=== PATIENT | female | born 1955 | race Caucasian/White ===

== ENCOUNTER → 2020-10-21 01:08 | Outpatient (CLI) | payer MEDICARE, SELFPAY ==
[2020-10-21 22:46] LABS: SARS-CoV-2 RNA PCR Negative
== END ==
PROVIDERS: PCP Internal Medicine; Visit Provider Internal Medicine
DX: B34.9 Viral infection, unspecified (principal); Z20.822 Contact with and (suspected) exposure to COVID-19
CPT/HCPCS: C9803; U0003; U0005

== ENCOUNTER 2022-03-20 14:30 | Outpatient (RCR) | payer MEDICARE, SELFPAY ==
[2022-01-10 10:01] VITALS: BMI 31.4
[2022-01-10 14:13] VITALS: BMI 31.4
== END 2022-04-10 23:59 | disposition home or self-care (01) ==
LOC: ANHDMC 14:30
PROVIDERS: PCP Internal Medicine; Visit Provider Internal Medicine
DX: E11.9 Type 2 diabetes mellitus without complications (principal); Z71.3 Dietary counseling and surveillance; Z71.89 Other specified counseling
CPT/HCPCS: 97802; 99199; G0108; G0109

== ENCOUNTER 2022-06-13 14:34 | Outpatient (RCR) | payer MEDICARE, SELFPAY | END 2022-06-13 16:36 | disposition home or self-care (01) | LOC: ANHDMC 14:34 | PROVIDERS: PCP Internal Medicine; Visit Provider Internal Medicine | DX: E11.9 Type 2 diabetes mellitus without complications (principal); Z71.89 Other specified counseling | CPT/HCPCS: G0109 ==

== ENCOUNTER 2022-12-17 00:16 | Day surgery (SDC) | payer MEDICARE, SELFPAY ==
[2022-12-04 15:06] VITALS: BMI 26.4
[2022-12-17 10:28] VITALS: BP 117/69; PULSE 96; RESP 18; TEMP 36.5; O2SAT 92
[2022-12-17] MEDS: LACTATED RINGERS 1,000 ML 150 ML IV CONT (10:42)
[2022-12-17 10:49] LABS: Glucose Point of Care 98 mg/dl (65-105)
--- NOTE | 2022-12-17 11:07 | PM.HPGS ---
History of Present Illness History of Present Illness Consent: Risks, benefits, and alternatives have been discussed and questions answered. Patient agrees to proceed with procedure. Chief complaint: hx of colon polyps Narrative: Agnes Jerry is a 67 year old female with colon polyp 4 years ago Review of Systems Constitutional: Constitutional: Denies headache(s) and Denies weakness Eyes: Eyes: Denies blurry vision ENT: Reports Normal hearing present, Denies headache(s) and Denies neck pain Cardiovascular: Cardiovascular: Denies chest pain and Denies dyspnea Respiratory: Respiratory: Denies dyspnea Gastrointestinal: Gastrointestinal: Reports no additional gastrointestinal complaints Genitourinary: Genitourinary: Denies dysuria Musculoskeletal: Musculoskeletal: Denies neck pain Integumentary/Breasts: Skin/Breast: Denies dry skin Neurologic: Reports Normal hearing present, Denies headache(s) and Denies weakness Psychiatric: Psychiatric: Denies anxiety Endocrine: Endocrine: Denies change in body appearance Hematologic/Lymphatic: Hematologic/Lymphatic: Denies easy bleeding Allergic/Immunologic: Allergic/Immunologic: Denies urticaria PMFSH Past Medical History Medical History (Updated 12/17/22 @ 11:07 by Aaron Owens MD) Colon polyp Family History Family History Mother Hypertension Father Patient's father is Sibling Patient's sister is in good health Social History Social History Smoking status: Never smoker Second hand tobacco smoke exposure: No Alcohol intake: never Substance use: never Substance use type: does not use Lack of Transportation: No Lack of Food: Never True Current Housing: I Have Housing Concerned About Future Housing: No Difficulty Paying Gas/Electric Bills: No Difficulty Paying for Meds: No Currently Unemployed: No Difficulty w/ Childcare or Family Care: No Living arrangements: with family Spiritual care concerns: No Meds Home Medications and Allergies Home Medications Medication Instructions Recorded Confirmed Type bupropion HCl 300 mg 24 hr tablet, 300 mg PO QAM 03/19/19 12/17/22 History extended release modafinil 200 mg tablet 600 mg PO QAM 03/19/19 12/17/22 History trazodone 50 mg tablet 150 mg PO .QHS 03/19/19 12/17/22 History cholecalciferol (vitamin D3) 25 25 mcg PO DAILY 09/13/19 12/17/22 History mcg (1,000 unit) capsule fluoxetine 20 mg capsule 20 mg PO DAILY 10/25/20 12/17/22 History albuterol sulfate 90 mcg/actuation 1 - 2 inh inhalation Q4-6H PRN 11/02/20 12/17/22 Rx aerosol inhaler shortness of breath or wheezing #8.5 grams ginkgo biloba 40 mg tablet 120 mg PO BID 01/17/21 12/17/22 History levothyroxine 100 mcg tablet 112 mcg PO DAILY 01/17/21 12/17/22 History risperidone 2 mg tablet 6 mg PO DAILY 01/17/21 12/17/22 History lancets 33 gauge (OneTouch Delica 01/23/22 12/17/22 History Plus Lancet) [facility] 01/25/22 12/17/22 Rx Plus Lancet) levomefolate calcium 15 mg tablet 15 mg PO DAILY 04/30/22 12/17/22 History (L-Methylfolate) blood sugar diagnostic (OneTouch #100 ea 10/16/22 12/17/22 Rx Verio test strips) cabergoline 0.5 mg tablet 1 mg PO 2XW 11/04/22 12/17/22 History omega-3 fatty acids 1,000 mg 1,000 mg PO BID 11/04/22 12/17/22 History capsule omeprazole 40 mg capsule,delayed 40 mg PO DAILY 11/04/22 12/17/22 History release atorvastatin 40 mg tablet 40 mg PO DAILY #90 tabs 12/04/22 12/17/22 Rx Arnuity Ellipta 100 mcg/actuation 1 inh inhalation DAILY 1 month #30 12/09/22 12/17/22 Rx powder for inhalation (fluticasone ea furoate) semaglutide 0.25 mg or 0.5 mg (2 0.25 mg (0.368 mL) subcut WEEKLY 12/10/22 12/17/22 Rx mg/3 mL) subcutaneous pen injector #3 mL ([facility]) Allergies Allergy/AdvReac
--- NOTE | 2022-12-17 11:21 | WPDANESEPPF ---
Anes - Initial Pre Proc Eval Procedure: Operation Date: 12/17/22 11:30 Proposed Procedures p Colonoscopy - Aaron Owens MD Date/Time: 12/17/22 11:21 Surgeon: Aaron Owens MD Pre Op Diagnosis: hx of colon polyps Patient Data Age: 67 Gender: F Height: 1.63 m Weight: 70.3 kg Last Vital Signs Temp 97.7 F 12/17/22 10:28 Pulse 96 12/17/22 10:28 Resp 18 12/17/22 10:28 BP 117/69 12/17/22 10:28 Pulse Ox 92 12/17/22 10:28 O2 Del Method Room Air 12/17/22 10:28 Allergies Allergy/AdvReac Type Severity Reaction Status Date / Time erythromycin base Allergy Mild Hives Verified 12/17/22 10:44 Penicillins Allergy Mild Hives Verified 12/17/22 10:44 Sulfa (Sulfonamide Allergy Mild Unknown Verified 12/17/22 10:44 Antibiotics) tetracycline Allergy Mild hives Verified 12/17/22 10:44 Home Medications Medication Instructions Recorded Confirmed Type bupropion HCl 300 mg 24 hr tablet, 300 mg PO QAM 03/19/19 12/17/22 History extended release modafinil 200 mg tablet 600 mg PO QAM 03/19/19 12/17/22 History trazodone 50 mg tablet 150 mg PO .QHS 03/19/19 12/17/22 History cholecalciferol (vitamin D3) 25 25 mcg PO DAILY 09/13/19 12/17/22 History mcg (1,000 unit) capsule fluoxetine 20 mg capsule 20 mg PO DAILY 10/25/20 12/17/22 History albuterol sulfate 90 mcg/actuation 1 - 2 inh inhalation Q4-6H PRN 11/02/20 12/17/22 Rx aerosol inhaler shortness of breath or wheezing #8.5 grams ginkgo biloba 40 mg tablet 120 mg PO BID 01/17/21 12/17/22 History levothyroxine 100 mcg tablet 112 mcg PO DAILY 01/17/21 12/17/22 History risperidone 2 mg tablet 6 mg PO DAILY 01/17/21 12/17/22 History lancets 33 gauge (OneTouch Delica 01/23/22 12/17/22 History Plus Lancet) lancets 33 gauge (OneTouch Delica #100 ea 01/25/22 12/17/22 Rx Plus Lancet) levomefolate calcium 15 mg tablet 15 mg PO DAILY 04/30/22 12/17/22 History (L-Methylfolate) blood sugar diagnostic (OneTouch #100 ea 10/16/22 12/17/22 Rx Verio test strips) cabergoline 0.5 mg tablet 1 mg PO 2XW 11/04/22 12/17/22 History omega-3 fatty acids 1,000 mg 1,000 mg PO BID 11/04/22 12/17/22 History capsule omeprazole 40 mg capsule,delayed 40 mg PO DAILY 11/04/22 12/17/22 History release atorvastatin 40 mg tablet 40 mg PO DAILY #90 tabs 12/04/22 12/17/22 Rx Arnuity Ellipta 100 mcg/actuation 1 inh inhalation DAILY 1 month #30 12/09/22 12/17/22 Rx powder for inhalation (fluticasone ea furoate) semaglutide 0.25 mg or 0.5 mg (2 0.25 mg (0.368 mL) subcut WEEKLY 12/10/22 12/17/22 Rx mg/3 mL) subcutaneous pen injector #3 mL ([facility]) Laboratory Tests 12/17/22 10:47 POC Capillary Glucose 98 mg/dl (65-105) Patient hx anesthesia problems: none Family hx anesthesia problems: none Results Review: All pre-operative results and documents have been reviewed as part of the pre-operative evaluation. [facility] Past Medical History Medical History (Updated 12/17/22 @ 11:07 by Aaron Owens MD) Colon polyp Family History Family History Mother Hypertension Father Patient's father is Sibling Patient's sister is in good health Social History Social History Smoking status: Never smoker Second hand tobacco smoke exposure: No Alcohol intake: never Substance use: never Substance use type: does not use Lack of Transportation: No Lack of Food: Never True Current Housing: I Have Housing Concerned About Future Housing: No Difficulty Paying Gas/Electric Bills: No Difficulty Paying for Meds: No Currently Unemployed: No Difficulty w/ Childcare or Family Care: No Living arrangements: with family Spiritual care concerns: No Anes - Eval Final PreProcedure Day of Procedure 12/17/22 11:21 Patient weight: normal Heart: re
[2022-12-17 11:41] VITALS: BP 104/59; PULSE 70; RESP 24; O2SAT 97
[2022-12-17 11:51] VITALS: BP 106/66; PULSE 69; RESP 20; O2SAT 100
[2022-12-17 12:01] VITALS: BP 119/70; PULSE 66; RESP 23; O2SAT 99
--- NOTE | 2022-12-17 12:45 | SUR.OPER ---
1140 2nd ascending colon polyp did not come through the trap. Ascending and descending colon polyps in same container. Dr. Gomez notified.
== END 2022-12-17 12:13 | disposition home or self-care (01) ==
PROVIDERS: PCP Internal Medicine; Visit Provider Internal Medicine Gastroenterology
PROC: 0DJD8ZZ Inspection of Lower Intestinal Tract, Via Natural or Artificial Opening Endoscopic (ICD-10-PCS; CPT 45378; principal; 2022-12-17 11:30)
DX: Z12.11 Encounter for screening for malignant neoplasm of colon (principal); D12.0 Benign neoplasm of cecum; D12.2 Benign neoplasm of ascending colon; D12.4 Benign neoplasm of descending colon; Z79.85 Long-term (current) use of injectable non-insulin antidiabetic drugs; Z79.51 Long term (current) use of inhaled steroids
CPT/HCPCS: 45385; 82948; 88305; J7120

== ENCOUNTER → 2023-01-30 13:02 | Outpatient (CLI) | payer MEDICARE, SELFPAY ==
--- NOTE | ~2023-01-30 | MM_ITS ---
EXAMINATION: MM screening betsey BI w basilio HISTORY: Screening mammogram TECHNIQUE: Craniocaudal and mediolateral oblique 3-D tomosynthesis images were obtained and synthetic 2-D images were generated. CAD analysis was submitted and interpreted. COMPARISON: 12/06/2011 BREAST PARENCHYMAL COMPOSITION: The breasts are heterogeneously dense, which may obscure small masses . FINDINGS: No suspicious mass, calcification, or architectural distortion are identified in either meg ast to suggest malignancy. There has been no suspicious interval change. IMPRESSION: 1. No mammographic evidence of malignancy. 2. Recommend routine screening mammography in one year. BI-RADS Category 1: Negative Reviewed, dictated and finalized at location A. [facility] D[facility]
== END ==
PROVIDERS: PCP Internal Medicine; Visit Provider Internal Medicine
DX: Z12.31 Encounter for screening mammogram for malignant neoplasm of breast (principal)
CPT/HCPCS: 77063; 77067

== ENCOUNTER → 2023-03-21 10:13 | Outpatient (CLI) | payer MEDICARE, SELFPAY ==
--- NOTE | ~2023-03-21 | DEXA_ITS ---
Bone Density Report Name: VIK ROWE Age: 68 Sex: Female Ethnicity: White Date of : 1955 Indication: osteopenia; height loss; postmenopausal; asthma or emphysema; Referring Provider: Easton Crow Study: Bone densitometry was performed. Exam Date: March 21, 2023 Accession number: [id number] Bone Density: Region BMD T-score Z-score Classification AP Spine (L1-L4) 0.810 -2.2 -0.3 Osteopenia Femoral Neck (Left) 0.552 -2.7 -1.1 Osteoporosis Total Hip (Left) 0.604 -2.8 -1.5 Osteoporosis Femoral Neck (Right) 0.560 -2.6 -1.0 Osteoporosis Total Hip (Right) 0.562 -3.1 -1.8 Osteoporosis Total Hip Mean 0.583 -3.0 -1.7 Osteoporosis World Health Organization criteria for BMD impression classify patients as: Normal (T-score at or above -1.0), Osteopenia (T-score between -1.0 and -2.5), or Osteoporosis (T-score at or below -2.5). 10-year Fracture Risk: FRAX not reported because: Some T-score for Spine Total or Hip Total or Femoral Neck at or below -2.5 Previous Exams: Region Exam Age BMD T-score BMD Change BMD Change Date g/cm2 vs Baseline vs Previous AP Spine(L1-L4) 03/21/2023 68 0.810 -2.2 -0.098* -0.098* 12/06/2011 56 0.908 -1.3 Total Hip(Left) 03/21/2023 68 0.604 -2.8 -0.136* -0.136* 12/06/2011 56 0.739 -1.7 Total Hip(Right) 03/21/2023 68 0.562 -3.1 -0.168* -0.168* 12/06/2011 56 0.730 -1.7 *Denotes significance at 95% confidence level, LSC for AP Spine = 0.022 g/cm2, LSC for Total Hip = 0.027 g/cm2 Clinical Information Provided by Patient: Has used the following medications: Vitamin D, LEVOTHYROXINE Has the following medical conditions: Asthma or Emphysema Patient maximum height was 65.0 Menopause Age: 50 No regular weight bearing exercise Onset of menses at age 14 Number of children 1 Impression: The patient has osteoporosis, based on the Right Total Hip T-score. The BMD for the AP Spine(L1-L4) decreased, changing by -0.098 since the last DXA exam. The BMD for the Total Hip(Left) decreased, changing by -0.136 since the last DXA exam. The BMD for the Total Hip(Right) decreased, changing by -0.168 since the last DXA exam. Discussion: INCREASED RISK OF FRACTURE. BONE DENSITY IS UNDESIRABLY LOW AT ONE OR MORE SKELETAL SITES, CONSISTENT WITH POSTMENOPAUSAL OSTEOPOROSIS. This patient's lowest T-score meets the World Health Organization's (WHO) criteria for osteoporosis at one or more sites (
== END ==
PROVIDERS: PCP Physician Assistant; Visit Provider Physician Assistant
DX: M81.0 Age-related osteoporosis without current pathological fracture (principal); Z78.0 Asymptomatic menopausal state
CPT/HCPCS: 77080

== ENCOUNTER 2023-03-26 07:32 | Outpatient (CLI) | payer MEDICARE, SELFPAY ==
--- NOTE | ~2023-03-26 | US_ITS ---
Abdominal Sonogram: Real-time sonographic imaging of the abdomen was performed. Clinical History: Epigastric pain Findings: The liver appears normal with no evidence of mass lesion or bile duct dilatation. Main por mariana vein demonstrates normal direction of flow. The spleen is normal in size without evidence of foca l lesion. The gallbladder is absent, compatible prior cholecystectomy. The common bile duct measures 9 mm. The visualized pancreas, aorta, and IVC are unremarkable. The right kidney measures 9.0 cm i n length and the left kidney measures 10.2 cm. There is no hydronephrosis or renal calculus. Impression: Mildly prominent common bile duct is probably related to prior cholecystectomy. Reviewed, dictated and finalized at location M. [employer] Impression: Mildly prominent common bile duct is probably related to prior cholecystectomy.
== END 2023-03-26 07:33 | disposition home or self-care (01) ==
LOC: ANHIMG 07:33
PROVIDERS: PCP Physician Assistant; Visit Provider Nurse Practitioner Family
DX: R10.13 Epigastric pain (principal); Z90.49 Acquired absence of other specified parts of digestive tract
CPT/HCPCS: 76700

== ENCOUNTER 2023-04-15 08:59 | Emergency (ER) | payer MEDICARE, SELFPAY ==
[2023-04-15] VITALS (14 sets, daily range): BP systolic 126–152; BP diastolic 71–87; PULSE 76–88; RESP 16–18; TEMP 36.4–36.5; O2SAT 93–100
--- NOTE | ~2023-04-15 | CT_ITS ---
EXAMINATION: CT abdomen pelvis w con DATE: 04/15/2023 15:31 INDICATION: Epigastric abdominal pain. TECHNIQUE: Computed tomography (CT) of the abdomen and pelvis was performed with 100 mL Omnipaque 350 intravenous contrast. Automated exposure control and iterative reconstruction technique were employe d. The dose-length product was 332.39 mGy-cm. COMPARISON: Abdomen ultrasound 03/26/2023 FINDINGS: The visualized portions of the lung bases demonstrate mild atelectasis. No pleural effusion . The heart size is normal. No pericardial effusion. The liver is normal. There are changes of colost jacky. The spleen is normal. There is ill-defined hypodense mass involving the body of the pancreas ric suring approximately 3.1 x 2.6 cm. The pancreatic duct is dilated to 5 mm in the tail of the pancreas . The common duct is dilated to 12 mm, likely not clinically significant given the normal liver funct ion tests. The adrenal glands and right kidney are normal. There is a 5 mm cyst in left kidney. The p eriuterine veins and ovarian veins are prominent, consistent with pelvic venous insufficiency. There are no dilated loops of bowel. The appendix is normal. Aortic atherosclerosis is noted. There are no pathologically enlarged lymph nodes. There is no free intraperitoneal fluid. There is mild lumbar spo ndylosis. There are chronic compression fractures of L1 and L3. IMPRESSION: 1. Pancreatic mass suspicious for primary adenocarcinoma. Reviewed, dictated and finalized at location E. [employer] TECHNICIAN
[2023-04-15 13:08] LABS: Glucose Point of Care 139 mg/dl (65-105)
--- NOTE | 2023-04-15 14:30 | ECG_ITS ---
Measurements Intervals Artemas Rate: 76 P: 13 AK: 150 QRS: 9 QRSD: 82 T: 53 QT: 366 QTc: 412 Interpretive Statements SINUS RHYTHM NO PREVIOUS ECG AVAILABLE FOR COMPARISON Electronically Signed On 04-15-2023 15:52:22 SEISMOGRAPH COMPUTER by Demetrio Patel M.D.
--- NOTE | 2023-04-15 14:38 | ED.ABDPAIN ---
HPI - Abdominal Pain General Chief Complaint: Abdominal Pain <Terese Collado PA-C - Last Filed: 04/15/23 19:29> Stated Complaint: abd pain <Terese Collado PA-C - Last Filed: 04/15/23 19:29> Time Seen by Provider: 04/15/23 14:05 <Terese Collado PA-C - Last Filed: 04/15/23 19:29> Focused HPI: This is a 68-year-old female that presents to the emergency department for epigastric abdominal pain. Ongoing over the last couple of months. Reports worsening with some nausea and vomiting. She does see GI for this. Denies fevers or diarrhea. GENERAL: Well-appearing, well-nourished, and in no acute distress. HEAD: Normocephalic, atraumatic. CHEST: Clear to auscultation. No respiratory distress. HEART: Regular rate and rhythm. GASTROINTESTINAL: Soft, nondistended. Tender in the epigastrium, without guarding NEURO: Alert and oriented x3. Patient screened in triage and initial orders placed. Additional care and disposition to be based upon diagnostic testing and treatment. <Terese Collado PA-C - Last Filed: 04/15/23 19:29> History of Present Illness HPI narrative: 68-year-old with a history of hypertension, depression presents to the ER with the complaints of upper abdominal pain which has been ongoing for past several weeks. Patient is scheduled for EGD by Dr. Gomez some time however this afternoon her pain was quite intense. She also complains of nausea and vomiting and was unable to keep any of her medicines down. She denies any fever chills. No history of chest pain or shortness of breath <Nicholas Stein MD - Last Filed: 04/15/23 18:32> Pain Consistency: constant <Nicholas Stein MD - Last Filed: 04/15/23 18:32> Location: epigastric <Nihcolas Stein MD - Last Filed: 04/15/23 18:32> Quality: aching <Nicholas Stein MD - Last Filed: 04/15/23 18:32> Radiation: none <Nicholas Stein MD - Last Filed: 04/15/23 18:32> Migration to: no migration <Nicholas Stein MD - Last Filed: 04/15/23 18:32> Exacerbating factors: nothing <Nicholas Stein MD - Last Filed: 04/15/23 18:32> Relieving factors: nothing <Nicholas Stein MD - Last Filed: 04/15/23 18:32> Related Data Home Medications: Home Medications Medication Instructions Recorded Confirmed bupropion HCl 300 mg 24 hr tablet, 300 mg PO QAM 03/19/19 04/14/23 extended release modafinil 200 mg tablet 600 mg PO QAM 03/19/19 04/14/23 trazodone 50 mg tablet 150 mg PO .QHS 03/19/19 04/14/23 cholecalciferol (vitamin D3) 25 25 mcg PO DAILY 09/13/19 04/14/23 mcg (1,000 unit) capsule fluoxetine 20 mg capsule 20 mg PO DAILY 10/25/20 04/14/23 ginkgo biloba 40 mg tablet 120 mg PO BID 01/17/21 04/14/23 risperidone 2 mg tablet 6 mg PO DAILY 01/17/21 04/14/23 lancets 33 gauge (OneTouch Delica 01/23/22 04/02/23 Plus Lancet) levomefolate calcium 15 mg tablet 15 mg PO DAILY 04/30/22 04/14/23 (L-Methylfolate) cabergoline 0.5 mg tablet 1 mg PO 2XW 11/04/22 04/14/23 omega-3 fatty acids 1,000 mg 1,000 mg PO BID 11/04/22 04/14/23 capsule linaclotide 72 mcg capsule 72 mcg PO DAILY PRN Constipation 04/14/23 04/14/23 (Linzess) <Terese Collado PA-C - Last Filed: 04/15/23 19:29> Allergies/Adverse Reactions: Allergies Allergy/AdvReac Type Severity Reaction Status Date / Time erythromycin base Allergy Mild Hives Verified 04/15/23 14:48 Penicillins Allergy Mild Hives Verified 04/15/23 14:48 Sulfa (Sulfonamide Allergy Mild Unknown Verified 04/15/23 14:48 Antibiotics) tetracycline Allergy Mild hives Verified 04/15/23 14:48 <Terese Collado PA-C - Last Filed: 04/15/23 19:29> Review of Systems Review of Systems: All systems reviewed & are unremarkable except as noted in HPI and below <Nicholas Stein MD - Last Filed: 04/15/23 18:32> Constitutional: Constitutional: Reports no additional constitutional complaints <Nicholas Stein MD - Last Filed: 04/15/23 18:32> Eyes: Eyes: Reports n
[2023-04-15] MEDS: ONDANSETRON INJ 4 MG/2 ML VIAL IV PUSH ×2 (14:47→16:50)
[2023-04-15] MEDS: PANTOPRAZOLE SODIUM IV 40 MG VIAL IV PUSH (14:48)
[2023-04-15 14:54] LABS: Basophils Percent Auto 0.7 % (0.2-1.2); Eosinophils Absolute Auto 0.1 K/mm3 (0-0.3); Eosinophils Percent Auto 1.1 % (0-4.4); Hematocrit 38.2 % (37.0-47.0); Hemoglobin 12.8 g/dL (12.0-15.0); Mean Corpuscular HGB Conc 33.5 g/dl (32-36); Mean Corpuscular Hemoglobin 31.5 pg (26-34); Mean Corpuscular Volume 94.1 fl (80-100); Monocytes Absolute Auto 0.4 K/mm3 (0.1-0.6); Monocytes Percent Auto 8.9 % (2.6-8.5); Neutrophils Absolute Auto 2.9 K/mm3 (1.3-6.7); Neutrophils Percent Auto 63.3 % (45.5-73.1); Platelet Count Result 227 k/mm3 (150-375); Red Blood Count 4.06 M/mm3 (4.2-5.4); Red Cell Distribution Width 12.2 % (11.5-14.5); White Blood Count 4.6 K/mm3 (4.5-10.0)
[2023-04-15 15:06] LABS: Alanine Aminotransferase 16 U/L (6-35); Albumin Level 4.5 g/dL (3.5-5.1); Alkaline Phosphatase 76 U/L (38-126); Anion Gap 6 mmol/L (8-16); Aspartate Amino Transferase 26 U/L (14-36); Bilirubin,Total 0.5 mg/dL (0.2-1.3); Blood Urea Nitrogen 8 mg/dL (7-17); Calcium 9.5 mg/dL (8.4-10.2); Carbon Dioxide 28 mmol/L (22-30); Chloride 91 mmol/L (98-107); Estimated CRCL calculation 80 ml/min; Estimated Glomerular Filt Rate > 60; Glucose 130 mg/dL (65-110); Lipase 70 U/L (23-300); Potassium 4.1 mmol/L (3.4-5.0); Sodium 125 mmol/L (137-145)
[2023-04-15 15:10] LABS: Appearance Urine Clear (Clear); Bacteria Urine None Seen /hpf; Bilirubin Urine Negative (Negative); Blood Urine Negative (Negative); Color Urine Yellow (Yellow); Glucose Urine UA Negative (Negative); Ketones Urine 1+ mg/dL (Negative); Leukocyte Esterase Ur 1+ LEU/UL (Negative); Need Manual Microscopic Reviewed; Nitrate Urine Negative (Negative); Non Pathogenic Casts 0-2; Protein Urine Negative (Negative); Specific Grav Ur 1.014 (1.001-1.035); Squamous Epithelial Cell Urine None seen /hpf (Few); Urobilinogen Urine 0.2 mg/dL (<2.0); WBC Urine 0-5 /hpf; pH Urine 7.5 (5.0-9.0)
[2023-04-15 15:11] LABS: Add Urine Microscopic? YES
[2023-04-15 15:18] LABS: Troponin I < 0.012 ng/mL (0.000-0.034)
[2023-04-15] MEDS: PANTOPRAZOLE SODIUM IV 80 MG in SODIUM CHLORIDE 0.9% IV 500 ML 50 MG IV CONT (16:39)
[2023-04-15] MEDS: MORPHINE SULFATE (*CRX) 4 MG/ML INJ IV PUSH (16:50)
[2023-04-15] MEDS: SODIUM CHLORIDE 0.9% IV 1,000 ML 150 ML IV CONT (17:09)
== END 2023-04-15 18:22 | disposition home or self-care (01) ==
PROVIDERS: Physician Assistant; Emergency Provider Family Medicine; PCP Physician Assistant
DX: K86.89 Other specified diseases of pancreas (principal); I10 Essential (primary) hypertension; F32.A Depression, unspecified; Z86.010 Personal history of colon polyps
CPT/HCPCS: 36415; 74177; 80053; 81001; 82948; 83690; 84484; 85025; 93005; 96365; 96366; 96375; 96376; 99284; C9113; J2270; J2405; J7030; J7040; Q9967

== ENCOUNTER 2023-09-01 12:50 | Outpatient (CLI) | payer MEDICARE, SELFPAY ==
[2023-09-01 14:05] LABS: Influenza A QL RT-PCR Negative (Negative); Influenza B QL RT-PCR Negative (Negative); RSV RNA, RT-PCR Negative (Negative); SARS-CoV-2 RNA PCR Negative (Negative)
== END 2023-09-01 12:51 | disposition home or self-care (01) ==
LOC: ANHLAB 12:51
PROVIDERS: PCP Internal Medicine; Visit Provider Internal Medicine
DX: Z20.828 Contact with and (suspected) exposure to other viral communicable diseases (principal)
CPT/HCPCS: 87637